=== PATIENT | female | born 1960 | race African-American/Black ===

== ENCOUNTER 2016-12-09 06:12 | Inpatient (IN) | payer MEDICARE, MEDICAID ==
[2016-12-09] VITALS (58 sets, daily range): BP systolic 113–184; BP diastolic 33–157
[~2016-12-09] VITALS: Ht 160 cm; Wt 77.1 kg
[~2016-12-09 06:12] MED LIST: DIGO250T4 GT; LACT10SO6 GT; METO-293 GT; METO25TA6 GT; MULT-1146 GT; PROT40 GT
[2016-12-09] MEDS ORDERED: ACETAMINOPHEN 650MG SUPP PR STA (06:15)
[2016-12-09] MEDS ORDERED: METHYLPREDNISOLONE SOD SUCC 125 MG/2 ML VIAL IV STA (06:40)
[2016-12-09] MEDS ORDERED: ALBUTEROL (0.083%) 2.5MG/3ML NEB HHN STA (06:40)
[2016-12-09] MEDS ORDERED: MAGNESIUM 2 G PREMIX 50 ML IV STA (06:40)
[2016-12-09] MEDS ORDERED: IPRATROPIUM BROMIDE (0.02%) 0.5MG/2.5ML NEB HHN STA (06:40)
[2016-12-09] MEDS ORDERED: LEVOFLOXACIN 500MG PREMIX 100 ML IV ONE (06:45)
[2016-12-09] MEDS ORDERED: IPRATROPIUM/ALBUTEROL 0.5-3(2.5)MG/3ML NEB ONE (06:54)
[2016-12-09] MEDS ORDERED: ALBUTEROL (0.5%) 2.5MG/0.5ML NEB HHN ONE (06:55)
[2016-12-09 06:57] LABS: BASOPHILS % 0.8 % (0.0-2.0); EOSINOPHILS % 1.1 % (0.0-5.0); HEMATOCRIT. 47.4 % (36.0-48.0); HEMOGLOBIN. 14.6 g/dL (12.0-16.0); LYMPHOCYTES % 29.8 % (20.0-50.0); MEAN CORPUSCULAR HEMOGLOBIN 23.7 pg (28.0-32.0); MEAN CORPUSCULAR VOLUME 77.1 fL (81.0-99.0); MONOCYTES % 6.1 % (2.0-8.0); NEUTROPHILS % 62.2 % (40.0-76.0); RED BLOOD CELL COUNT 6.15 mill/uL (4.2-5.4); RED CELL DISTRIBUTION WIDTH 14.8 % (11.6-14.6)
[2016-12-09 07:02] LABS: PARTIAL THROMBOPLASTIN TIME 25.9 sec (24.0-34.0); PROTHROMBIN TIME 10.5 sec
[2016-12-09 07:10] LABS: CARBON DIOXIDE 27 mEq/L (21-32); CHLORIDE 106 mEq/L (98-107)
[2016-12-09 07:12] LABS: AMMONIA 44 uMol/L (<32); TROPONIN I < 0.02 ng/mL (0.00-0.04)
[2016-12-09 07:23] LABS: MEAN PLATELET VOLUME 11.5 fl (7.4-10.4); PLATELET 113 x1000/uL (130-400)
[2016-12-09] MEDS ORDERED: SODIUM CHLORIDE 0.9% 1,000 ML IV ONE (07:23)
[2016-12-09 07:28] LABS: DIGOXIN 0.5 ng/mL (0.9-2.0)
[2016-12-09] MEDS ORDERED: SUCCINYLCHOLINE CHLORIDE 200MG/10ML VIAL IV ONE ×2 (07:30→10:54)
[2016-12-09] MEDS ORDERED: PROPOFOL 10MG/ML 100ML 100 ML IV ONE (07:30)
[2016-12-09 07:42] LABS: CLARITY URINE CLOUDY (CLEAR); COLOR URINE YELLOW (YELLOW); GLUCOSE URINE NEGATIVE (NEGATIVE); KETONES URINE TRACE (NEGATIVE); LEUKOCYTE ESTERASE URINE 2+ (NEGATIVE); NITRITE URINE POSITIVE (NEGATIVE); OCCULT BLOOD URINE NEGATIVE (NEGATIVE); PH URINE 6.5 (4.5-8.0); PROTEIN URINE 1+ (NEGATIVE); SPECIFIC GRAVITY URINE 1.027 (1.005-1.030)
[2016-12-09] MEDS ORDERED: SODIUM CHLORIDE 0.9% 1000ML BAG (SEPSIS BOLUS) IV ONE (08:00)
[2016-12-09] MEDS ORDERED: ETOMIDATE 2MG/ML 10ML VIAL IV ONE ×2 (08:15→10:54)
[2016-12-09 09:04] LABS: BG BASE EXCESS -3.7 mmol/L (-2.0-2.0); BG CARBOXYHEMOGLOBIN 0.8 % (0.5-1.5); BG DEOXYHEMOGLOBIN 1.3 % (0.0-5.0); BG FRACTION INSPIRED OXYGEN 75; BG HCO3 ACT 23.4 mmol/L (22.0-26.0); BG METHEMOGLOBIN 0.5 % (0.0-1.5); BG OXYGEN SATURATION 98.7 % (92.0-98.5); BG OXYHEMOGLOBIN 97.4 % (94.0-97.0); BG PCO2 49.8 mmHg (35.0-45.0); BG PH 7.289 (7.350-7.450); BG PO2 135.7 mmHg (75.0-100.0); BG SAMPLE SITE RIGHT RADIAL; BG TIDAL VOLUME(mL) 450 mL; BG TOTAL HEMOGLOBIN 15.1 g/dL (12.0-18.0); BG VENT MODE VENT - A/C; BG VENT RATE 12 set
[2016-12-09] MEDS ORDERED: IPRATROPIUM/ALBUTEROL 0.5-3(2.5)MG/3ML NEB HHN PRN (09:30)
[2016-12-09] MEDS ORDERED: NOREPINEPHRINE 8 MG in DEXT 5% WATER 242 ML IV PRN (09:30)
[2016-12-09] MEDS ORDERED: PROPOFOL 10MG/ML 100ML 100 ML IV PRN (10:30)
[2016-12-09 10:51] LABS: BG BASE EXCESS -8.2 mmol/L (-2.0-2.0); BG DEOXYHEMOGLOBIN 2.3 % (0.0-5.0); BG FRACTION INSPIRED OXYGEN 75; BG HCO3 ACT 18.6 mmol/L (22.0-26.0); BG METHEMOGLOBIN 0.6 % (0.0-1.5); BG OXYGEN SATURATION 97.7 % (92.0-98.5); BG OXYHEMOGLOBIN 96.1 % (94.0-97.0); BG PH 7.254 (7.350-7.450); BG PO2 105.2 mmHg (75.0-100.0); BG SAMPLE SITE LEFT RADIAL; BG TIDAL VOLUME(mL) 450 mL; BG TOTAL HEMOGLOBIN 14.5 g/dL (12.0-18.0); BG VENT MODE VENT - A/C; BG VENT RATE 12 set
[2016-12-09] MEDS ORDERED: LEVVL SQ ×2 (10:53)
[2016-12-09] MEDS ORDERED: [UNRECOGNIZED DRUG - CODE] GT (10:55)
[2016-12-09] MEDS ORDERED: DIGO125T82 PO (10:56)
[2016-12-09] MEDS ORDERED: FAMO-134 GT (10:57)
[2016-12-09] MEDS ORDERED: CHOL20004 GT (10:58)
[2016-12-09] MEDS ORDERED: ONDANSETRON HCL 4MG/2ML VIAL IV PRN (11:15)
[2016-12-09] MEDS ORDERED: CLONIDINE 0.1MG TABLET PO PRN (11:15)
[2016-12-09] MEDS ORDERED: NA PHOS,M-B/NA PHOS,DI-BA ENEMA 118ML PR PRN (11:15)
[2016-12-09] MEDS ORDERED: DOCUSATE SODIUM 100MG CAPSULE PO PRN (11:15)
[2016-12-09] MEDS ORDERED: MAGNESIUM/ALUMINUM HYDROXIDE/SIMETHICONE 30ML UDC PO PRN (11:15)
[2016-12-09] MEDS ORDERED: DIPHENHYDRAMINE 50MG/ML VIAL IV PRN (11:15)
[2016-12-09] MEDS: DEXT 5%/0.9% NACL 1,000 ML IV SCH ×2 (12:00→20:53)
[2016-12-09] MEDS ORDERED: VANCOMYCIN 1500MG in DEXTROSE 5% WATER 250ML IV SCH (12:00)
[2016-12-09] MEDS: MEROPENEM 1,000 MG in SODIUM CHLORIDE 0.9% 100 ML IV SCH ×2 (12:00→20:51)
[2016-12-09] MEDS: ENOXAPARIN 30MG/0.3ML SYR SUBCUT SCH ×2 (12:01→20:53)
[2016-12-09] MEDS ORDERED: DEXTROSE 50% WATER 50ML SYRINGE IV PRN (12:30)
[2016-12-09] MEDS: IPRATROPIUM/ALBUTEROL 0.5-3(2.5)MG/3ML NEB HHN SCH ×2 (12:39→20:17)
[2016-12-09] MEDS: METOPROLOL TARTRATE 25MG TABLET GT SCH ×2 (12:52→20:52)
[2016-12-09] MEDS: INSULIN LISPRO 100 UNITS/ML SUBCUT SCH ×2 (12:52→18:08)
[2016-12-09] MEDS: BLOOD SUGAR DIAGNOSTIC STRIP TEST SCH ×3 (12:53→23:58)
[2016-12-09] MEDS ORDERED: MORPHINE SULFATE 2 MG/ML CPJ (NOT FOR IM USE) IV PRN ×2 (14:15)
[2016-12-09] MEDS: DIGOXIN 125MCG TABLET GT SCH (18:07)
[2016-12-09] MEDS ORDERED: FENTANYL CITRATE/PF 500 MCG in SODIUM CHLORIDE 0.9% 40 ML IV PRN (18:30)
[2016-12-09] MEDS: FAMOTIDINE 20MG TABLET PO SCH (20:51)
[2016-12-09] MEDS: BACITRACIN/POLYMYXIN B SULFATE OINT 15GM TOP SCH (20:53)
[2016-12-09] MEDS: INSULIN DETEMIR UD 100 UNITS/ML SYR SUBCUT SCH (21:06)
[2016-12-09] MEDS ORDERED: MORPHINE SULFATE 4 MG/ML CPJ (NOT FOR IM USE) IV PRN ×2 (22:21→22:30)
[2016-12-09] MEDS: VANCOMYCIN 1 G PREMIX 200 ML IV SCH (22:24)
[2016-12-09] MEDS: MORPHINE SULFATE 4 MG/ML CPJ (NOT FOR IM USE) IV PRN (22:30)
[2016-12-10] VITALS (63 sets, daily range): BP systolic 96–149; BP diastolic 52–80
[2016-12-10] MEDS: INSULIN LISPRO 100 UNITS/ML SUBCUT SCH ×5 (00:04→23:55)
[2016-12-10] MEDS: IPRATROPIUM/ALBUTEROL 0.5-3(2.5)MG/3ML NEB HHN SCH ×4 (02:07→20:21)
[2016-12-10] MEDS: MEROPENEM 1,000 MG in SODIUM CHLORIDE 0.9% 100 ML IV SCH ×3 (02:15→18:05)
[2016-12-10] MEDS: BLOOD SUGAR DIAGNOSTIC STRIP TEST SCH ×3 (05:20→17:13)
[2016-12-10 05:50] LABS: BASOPHILS % 0.4 % (0.0-2.0); HEMOGLOBIN. 12.1 g/dL (12.0-16.0); LYMPHOCYTES % 10.6 % (20.0-50.0); MEAN CORPUSCULAR HEMOGLOBIN 23.6 pg (28.0-32.0); MEAN CORPUSCULAR VOLUME 78.1 fL (81.0-99.0); MEAN PLATELET VOLUME 11.7 fl (7.4-10.4); PLATELET 98 x1000/uL (130-400); RED BLOOD CELL COUNT 5.12 mill/uL (4.2-5.4); RED CELL DISTRIBUTION WIDTH 15.1 % (11.6-14.6)
[2016-12-10] MEDS: DEXT 5%/0.9% NACL 1,000 ML IV SCH (06:03)
[2016-12-10 06:04] LABS: CARBON DIOXIDE 26 mEq/L (21-32); CHLORIDE 112 mEq/L (98-107)
[2016-12-10 07:28] LABS: BG BASE EXCESS 1.3 mmol/L (-2.0-2.0); BG CARBOXYHEMOGLOBIN 0.5 % (0.5-1.5); BG DEOXYHEMOGLOBIN 4.1 % (0.0-5.0); BG HCO3 ACT 27.2 mmol/L (22.0-26.0); BG METHEMOGLOBIN 0.1 % (0.0-1.5); BG OXYGEN SATURATION 95.9 % (92.0-98.5); BG OXYHEMOGLOBIN 95.3 % (94.0-97.0); BG PCO2 48.2 mmHg (35.0-45.0); BG PO2 79.4 mmHg (75.0-100.0); BG SAMPLE SITE RIGHT BRACHIAL; BG TIDAL VOLUME(mL) 500 mL; BG TOTAL HEMOGLOBIN 13.2 g/dL (12.0-18.0); BG VENT MODE VENT - A/C; BG VENT RATE 12 set
[2016-12-10] MEDS: ENOXAPARIN 30MG/0.3ML SYR SUBCUT SCH (08:11)
[2016-12-10] MEDS: METOPROLOL TARTRATE 25MG TABLET GT SCH ×2 (08:11→20:51)
[2016-12-10] MEDS: MORPHINE SULFATE 4 MG/ML CPJ (NOT FOR IM USE) IV PRN (08:12)
[2016-12-10] MEDS: BACITRACIN/POLYMYXIN B SULFATE OINT 15GM TOP SCH ×2 (08:12→20:52)
[2016-12-10] MEDS: DEXT 5%/0.45% NACL 1000ML 1,000 ML IV SCH ×2 (10:31→20:51)
[2016-12-10] MEDS: VANCOMYCIN 1 G PREMIX 200 ML IV SCH ×2 (10:33→23:55)
[2016-12-10] MEDS: DIGOXIN 125MCG TABLET GT SCH (17:13)
[2016-12-10] MEDS: FAMOTIDINE 20MG TABLET PO SCH (20:51)
[2016-12-10] MEDS: INSULIN DETEMIR UD 100 UNITS/ML SYR SUBCUT SCH (21:06)
[2016-12-10] MEDS: LORAZEPAM 2MG/ML CPJ IV PRN (23:55)
[2016-12-11] VITALS (24 sets, daily range): BP systolic 103–158; BP diastolic 58–88
[2016-12-11] MEDS: BLOOD SUGAR DIAGNOSTIC STRIP TEST SCH ×4 (00:03→18:00)
[2016-12-11] MEDS: MEROPENEM 1,000 MG in SODIUM CHLORIDE 0.9% 100 ML IV SCH ×3 (01:17→18:07)
[2016-12-11] MEDS: IPRATROPIUM/ALBUTEROL 0.5-3(2.5)MG/3ML NEB HHN SCH ×5 (01:58→20:19)
[2016-12-11 05:24] LABS: BASOPHILS % 0.7 % (0.0-2.0); HEMOGLOBIN. 11.6 g/dL (12.0-16.0); LYMPHOCYTES % 24.2 % (20.0-50.0); MEAN CORPUSCULAR HEMOGLOBIN 23.7 pg (28.0-32.0); MEAN CORPUSCULAR VOLUME 77.5 fL (81.0-99.0); MONOCYTES % 7.7 % (2.0-8.0); NEUTROPHILS % 66.4 % (40.0-76.0); RED BLOOD CELL COUNT 4.91 mill/uL (4.2-5.4); RED CELL DISTRIBUTION WIDTH 14.7 % (11.6-14.6)
[2016-12-11 05:36] LABS: CARBON DIOXIDE 27 mEq/L (21-32); CHLORIDE 108 mEq/L (98-107)
[2016-12-11] MEDS: INSULIN LISPRO 100 UNITS/ML SUBCUT SCH ×3 (06:36→18:29)
[2016-12-11 08:25] LABS: BG CARBOXYHEMOGLOBIN 0.8 % (0.5-1.5); BG DEOXYHEMOGLOBIN 2.7 % (0.0-5.0); BG FRACTION INSPIRED OXYGEN 40; BG HCO3 ACT 26.5 mmol/L (22.0-26.0); BG METHEMOGLOBIN 0.3 % (0.0-1.5); BG OXYGEN SATURATION 97.3 % (92.0-98.5); BG OXYHEMOGLOBIN 96.2 % (94.0-97.0); BG PCO2 41.1 mmHg (35.0-45.0); BG PH 7.428 (7.350-7.450); BG PO2 86.8 mmHg (75.0-100.0); BG SAMPLE SITE RIGHT RADIAL; BG TIDAL VOLUME(mL) 500 mL; BG TOTAL HEMOGLOBIN 13.4 g/dL (12.0-18.0); BG VENT MODE VENT - A/C; BG VENT RATE 12 set
[2016-12-11] MEDS ORDERED: PANTOPRAZOLE SODIUM 40 MG/VIAL IV SCH (09:45)
[2016-12-11] MEDS ORDERED: POTASSIUM CHLORIDE 20MEQ/PACKET PO NR (09:45)
[2016-12-11] MEDS: METOPROLOL TARTRATE 25MG TABLET GT SCH ×2 (09:49→21:27)
[2016-12-11] MEDS: BACITRACIN/POLYMYXIN B SULFATE OINT 15GM TOP SCH ×2 (09:49→21:28)
[2016-12-11] MEDS ORDERED: FAMOTIDINE 20MG/2ML VIAL IV SCH (10:00)
[2016-12-11] MEDS ORDERED: OMEPRAZOLE 20MG CAPSULE EXTENDED RELEASE PO SCH (10:15)
[2016-12-11 10:39] LABS: PHOSPHORUS 1.5 mg/dL (2.5-4.9)
[2016-12-11] MEDS: LANSOPRAZOLE 30MG DR CAPSULE GT SCH (11:12)
[2016-12-11] MEDS: VANCOMYCIN 1 G PREMIX 200 ML IV SCH (11:22)
[2016-12-11] MEDS: LORAZEPAM 2MG/ML CPJ IV PRN (11:26)
[2016-12-11] MEDS: ACETYLCYSTEINE 100MG/ML 10% VIAL 4ML INH SCH ×3 (12:49→20:20)
[2016-12-11] MEDS: DIGOXIN 125MCG TABLET GT SCH (18:08)
[2016-12-11] MEDS: INSULIN DETEMIR UD 100 UNITS/ML SYR SUBCUT SCH (21:30)
[2016-12-11] MEDS: VANCOMYCIN 1250MG in DEXTROSE 5% WATER 250ML IV SCH (22:47)
[2016-12-12] VITALS (24 sets, daily range): BP systolic 95–168; BP diastolic 54–93
[2016-12-12] MEDS: BLOOD SUGAR DIAGNOSTIC STRIP TEST SCH ×4 (00:01→18:00)
[2016-12-12] MEDS: INSULIN LISPRO 100 UNITS/ML SUBCUT SCH ×4 (00:13→18:11)
[2016-12-12] MEDS: IPRATROPIUM/ALBUTEROL 0.5-3(2.5)MG/3ML NEB HHN SCH ×6 (00:13→20:28)
[2016-12-12] MEDS: ACETYLCYSTEINE 100MG/ML 10% VIAL 4ML INH SCH ×5 (00:14→20:27)
[2016-12-12] MEDS: MEROPENEM 1,000 MG in SODIUM CHLORIDE 0.9% 100 ML IV SCH ×3 (02:36→17:09)
[2016-12-12] MEDS: MORPHINE SULFATE 4 MG/ML CPJ (NOT FOR IM USE) IV PRN (02:43)
[2016-12-12] MEDS: LORAZEPAM 2MG/ML CPJ IV PRN (03:43)
[2016-12-12] MEDS: ACETAMINOPHEN 325MG TABLET PO PRN (03:56)
[2016-12-12 05:21] LABS: BASOPHILS % 0.3 % (0.0-2.0); EOSINOPHILS % 0.5 % (0.0-5.0); HEMATOCRIT. 40.6 % (36.0-48.0); HEMOGLOBIN. 12.6 g/dL (12.0-16.0); LYMPHOCYTES % 16.2 % (20.0-50.0); MEAN CORPUSCULAR HEMOGLOBIN 23.7 pg (28.0-32.0); MEAN CORPUSCULAR VOLUME 76.3 fL (81.0-99.0); MONOCYTES % 6.8 % (2.0-8.0); NEUTROPHILS % 76.2 % (40.0-76.0); RED BLOOD CELL COUNT 5.32 mill/uL (4.2-5.4); RED CELL DISTRIBUTION WIDTH 14.6 % (11.6-14.6)
[2016-12-12 05:39] LABS: CARBON DIOXIDE 27 mEq/L (21-32); CHLORIDE 106 mEq/L (98-107); PHOSPHORUS 1.7 mg/dL (2.5-4.9)
[2016-12-12 07:47] LABS: MEAN PLATELET VOLUME 11.6 fl (7.4-10.4); PLATELET 112 x1000/uL (130-400)
[2016-12-12] MEDS: LANSOPRAZOLE 30MG DR CAPSULE GT SCH (07:49)
[2016-12-12] MEDS: BACITRACIN/POLYMYXIN B SULFATE OINT 15GM TOP SCH ×2 (09:52→20:59)
[2016-12-12] MEDS: METOPROLOL TARTRATE 25MG TABLET GT SCH ×2 (09:53→20:59)
[2016-12-12] MEDS: VANCOMYCIN 1250MG in DEXTROSE 5% WATER 250ML IV SCH ×2 (11:56→22:28)
[2016-12-12] MEDS ORDERED: LANSOPRAZOLE 30MG DR CAPSULE GT SCH (12:00)
[2016-12-12] MEDS ORDERED: POTASSIUM PHOS,M-BASIC-D-BASIC 15 MMOL in DEXT 5% WATER 245 ML IV NR (13:30)
[2016-12-12] MEDS: DIGOXIN 125MCG TABLET GT SCH (17:09)
[2016-12-12] MEDS: INSULIN DETEMIR UD 100 UNITS/ML SYR SUBCUT SCH (22:29)
[2016-12-13] VITALS (24 sets, daily range): BP systolic 104–152; BP diastolic 52–84
[2016-12-13] MEDS: IPRATROPIUM/ALBUTEROL 0.5-3(2.5)MG/3ML NEB HHN SCH ×7 (00:12→23:55)
[2016-12-13] MEDS: ACETYLCYSTEINE 100MG/ML 10% VIAL 4ML INH SCH ×7 (00:12→23:56)
[2016-12-13] MEDS: BLOOD SUGAR DIAGNOSTIC STRIP TEST SCH ×5 (00:18→23:32)
[2016-12-13] MEDS: INSULIN LISPRO 100 UNITS/ML SUBCUT SCH ×5 (00:21→23:39)
[2016-12-13] MEDS: MEROPENEM 1,000 MG in SODIUM CHLORIDE 0.9% 100 ML IV SCH ×3 (02:11→18:12)
[2016-12-13 05:49] LABS: BASOPHILS % 0.6 % (0.0-2.0); EOSINOPHILS % 1.9 % (0.0-5.0); HEMATOCRIT. 41.9 % (36.0-48.0); HEMOGLOBIN. 13.1 g/dL (12.0-16.0); LYMPHOCYTES % 21.7 % (20.0-50.0); MEAN CORPUSCULAR HEMOGLOBIN 23.6 pg (28.0-32.0); MEAN CORPUSCULAR VOLUME 75.7 fL (81.0-99.0); MEAN PLATELET VOLUME 11.4 fl (7.4-10.4); MONOCYTES % 5.8 % (2.0-8.0); PLATELET 125 x1000/uL (130-400); RED BLOOD CELL COUNT 5.54 mill/uL (4.2-5.4)
[2016-12-13 06:21] LABS: CARBON DIOXIDE 28 mEq/L (21-32); CHLORIDE 106 mEq/L (98-107)
[2016-12-13] MEDS: LANSOPRAZOLE 30MG DR CAPSULE GT SCH (07:55)
[2016-12-13 08:51] LABS: PLATELET ESTIMATE SLIGHTLY DECREASED
[2016-12-13] MEDS: METOPROLOL TARTRATE 25MG TABLET GT SCH ×2 (09:07→20:18)
[2016-12-13] MEDS: BACITRACIN/POLYMYXIN B SULFATE OINT 15GM TOP SCH ×2 (09:08→20:17)
[2016-12-13] MEDS: MORPHINE SULFATE 4 MG/ML CPJ (NOT FOR IM USE) IV PRN (10:47)
[2016-12-13] MEDS: VANCOMYCIN 1500MG in DEXTROSE 5% WATER 250ML IV SCH ×2 (12:12→21:06)
[2016-12-13] MEDS: DIGOXIN 125MCG TABLET GT SCH (18:12)
[2016-12-13] MEDS: ENOXAPARIN 40MG/0.4ML SYR SUBCUT SCH (18:15)
[2016-12-13] MEDS: INSULIN DETEMIR UD 100 UNITS/ML SYR SUBCUT SCH (21:10)
[2016-12-14] VITALS (25 sets, daily range): BP systolic 98–150; BP diastolic 56–118
[2016-12-14] MEDS: MEROPENEM 1,000 MG in SODIUM CHLORIDE 0.9% 100 ML IV SCH ×3 (01:01→18:26)
[2016-12-14] MEDS: IPRATROPIUM/ALBUTEROL 0.5-3(2.5)MG/3ML NEB HHN SCH ×5 (04:01→20:00)
[2016-12-14] MEDS: ACETYLCYSTEINE 100MG/ML 10% VIAL 4ML INH SCH ×5 (04:02→20:00)
[2016-12-14] MEDS: BLOOD SUGAR DIAGNOSTIC STRIP TEST SCH ×3 (05:10→18:19)
[2016-12-14] MEDS: INSULIN LISPRO 100 UNITS/ML SUBCUT SCH ×3 (05:10→18:00)
[2016-12-14] MEDS: METOPROLOL TARTRATE 25MG TABLET GT SCH ×2 (08:02→21:43)
[2016-12-14] MEDS: LANSOPRAZOLE 30MG DR CAPSULE GT SCH (08:02)
[2016-12-14] MEDS: BACITRACIN/POLYMYXIN B SULFATE OINT 15GM TOP SCH ×2 (08:03→21:43)
[2016-12-14 08:16] LABS: BG BASE EXCESS 1.5 mmol/L (-2.0-2.0); BG CARBOXYHEMOGLOBIN 0.8 % (0.5-1.5); BG DEOXYHEMOGLOBIN 4.7 % (0.0-5.0); BG FRACTION INSPIRED OXYGEN 40; BG HCO3 ACT 27.2 mmol/L (22.0-26.0); BG METHEMOGLOBIN 0.3 % (0.0-1.5); BG OXYGEN SATURATION 95.2 % (92.0-98.5); BG OXYHEMOGLOBIN 94.2 % (94.0-97.0); BG PCO2 47.3 mmHg (35.0-45.0); BG PH 7.378 (7.350-7.450); BG PO2 75.5 mmHg (75.0-100.0); BG SAMPLE SITE RIGHT RADIAL; BG TIDAL VOLUME(mL) 500 mL; BG VENT MODE VENT - A/C; BG VENT RATE 12 set
[2016-12-14] MEDS: VANCOMYCIN 1500MG in DEXTROSE 5% WATER 250ML IV SCH ×2 (09:24→21:42)
[2016-12-14 11:45] LABS: BASOPHILS % 0.7 % (0.0-2.0); EOSINOPHILS % 3.2 % (0.0-5.0); HEMATOCRIT. 41.9 % (36.0-48.0); HEMOGLOBIN. 12.9 g/dL (12.0-16.0); LYMPHOCYTES % 20.2 % (20.0-50.0); MEAN CORPUSCULAR HEMOGLOBIN 23.7 pg (28.0-32.0); MEAN CORPUSCULAR VOLUME 76.8 fL (81.0-99.0); MEAN PLATELET VOLUME 11.1 fl (7.4-10.4); MONOCYTES % 5.9 % (2.0-8.0); PLATELET 125 x1000/uL (130-400); RED BLOOD CELL COUNT 5.45 mill/uL (4.2-5.4)
[2016-12-14 11:54] LABS: CARBON DIOXIDE 27 mEq/L (21-32); CHLORIDE 107 mEq/L (98-107)
[2016-12-14 11:57] LABS: PHOSPHORUS 2.6 mg/dL (2.5-4.9)
[2016-12-14] MEDS: ENOXAPARIN 40MG/0.4ML SYR SUBCUT SCH (15:44)
[2016-12-14] MEDS: DIGOXIN 125MCG TABLET GT SCH (18:26)
[2016-12-14] MEDS: INSULIN DETEMIR UD 100 UNITS/ML SYR SUBCUT SCH (22:00)
[2016-12-15] VITALS (24 sets, daily range): BP systolic 100–153; BP diastolic 59–85
[2016-12-15] MEDS: ACETYLCYSTEINE 100MG/ML 10% VIAL 4ML INH SCH ×6 (00:24→20:13)
[2016-12-15] MEDS: IPRATROPIUM/ALBUTEROL 0.5-3(2.5)MG/3ML NEB HHN SCH ×6 (00:24→20:13)
[2016-12-15] MEDS: BLOOD SUGAR DIAGNOSTIC STRIP TEST SCH ×5 (00:31→23:58)
[2016-12-15] MEDS: INSULIN LISPRO 100 UNITS/ML SUBCUT SCH ×4 (00:35→17:56)
[2016-12-15] MEDS: MEROPENEM 1,000 MG in SODIUM CHLORIDE 0.9% 100 ML IV SCH ×3 (01:34→17:55)
[2016-12-15] MEDS: LANSOPRAZOLE 30MG DR CAPSULE GT SCH (08:53)
[2016-12-15] MEDS: VANCOMYCIN 1500MG in DEXTROSE 5% WATER 250ML IV SCH (08:54)
[2016-12-15] MEDS: METOPROLOL TARTRATE 25MG TABLET GT SCH ×2 (08:54→20:49)
[2016-12-15] MEDS: BACITRACIN/POLYMYXIN B SULFATE OINT 15GM TOP SCH ×2 (08:54→20:50)
[2016-12-15 11:51] LABS: BG BASE EXCESS 2.9 mmol/L (-2.0-2.0); BG CARBOXYHEMOGLOBIN 0.5 % (0.5-1.5); BG CPAP (cmH2O) 0 cm(H2O); BG DEOXYHEMOGLOBIN 3.9 % (0.0-5.0); BG HCO3 ACT 27.9 mmol/L (22.0-26.0); BG METHEMOGLOBIN 0.3 % (0.0-1.5); BG OXYGEN SATURATION 96.1 % (92.0-98.5); BG OXYHEMOGLOBIN 95.3 % (94.0-97.0); BG PCO2 44.3 mmHg (35.0-45.0); BG PH 7.417 (7.350-7.450); BG PO2 79.3 mmHg (75.0-100.0); BG PRESSURE SUPPORT 12; BG SAMPLE SITE RIGHT RADIAL; BG TOTAL HEMOGLOBIN 13.7 g/dL (12.0-18.0); BG VENT MODE VENT - CPAP
[2016-12-15] MEDS: VANCOMYCIN HCL 1000 MG/20 ML ORAL PO SCH ×3 (12:19→23:59)
[2016-12-15 12:40] LABS: BASOPHILS % 0.7 % (0.0-2.0); EOSINOPHILS % 2.5 % (0.0-5.0); HEMOGLOBIN. 12.8 g/dL (12.0-16.0); MEAN CORPUSCULAR HEMOGLOBIN 23.9 pg (28.0-32.0); MEAN CORPUSCULAR VOLUME 76.6 fL (81.0-99.0); MEAN PLATELET VOLUME 11.4 fl (7.4-10.4); NEUTROPHILS % 66.8 % (40.0-76.0); PLATELET 149 x1000/uL (130-400); RED BLOOD CELL COUNT 5.35 mill/uL (4.2-5.4); RED CELL DISTRIBUTION WIDTH 14.4 % (11.6-14.6)
[2016-12-15 12:42] LABS: CARBON DIOXIDE 28 mEq/L (21-32); CHLORIDE 105 mEq/L (98-107); PHOSPHORUS 2.8 mg/dL (2.5-4.9)
[2016-12-15] MEDS: ENOXAPARIN 40MG/0.4ML SYR SUBCUT SCH (15:16)
[2016-12-15] MEDS: VANCOMYCIN 1 G PREMIX 200 ML IV SCH ×2 (16:51→23:59)
[2016-12-15] MEDS: DIGOXIN 125MCG TABLET GT SCH (17:55)
[2016-12-15] MEDS: INSULIN DETEMIR UD 100 UNITS/ML SYR SUBCUT SCH (21:07)
[2016-12-15 23:47] LABS: PLATELET ESTIMATE NORMAL
[2016-12-16] VITALS (24 sets, daily range): BP systolic 108–156; BP diastolic 62–87
[2016-12-16] MEDS: IPRATROPIUM/ALBUTEROL 0.5-3(2.5)MG/3ML NEB HHN SCH ×6 (00:13→20:10)
[2016-12-16] MEDS: ACETYLCYSTEINE 100MG/ML 10% VIAL 4ML INH SCH ×4 (00:13→12:01)
[2016-12-16] MEDS: MEROPENEM 1,000 MG in SODIUM CHLORIDE 0.9% 100 ML IV SCH ×2 (02:01→10:15)
[2016-12-16] MEDS: VANCOMYCIN HCL 1000 MG/20 ML ORAL PO SCH ×4 (05:43→23:54)
[2016-12-16] MEDS: BLOOD SUGAR DIAGNOSTIC STRIP TEST SCH ×4 (05:43→23:49)
[2016-12-16] MEDS: INSULIN LISPRO 100 UNITS/ML SUBCUT SCH ×5 (06:00→23:58)
[2016-12-16] MEDS: METOPROLOL TARTRATE 25MG TABLET GT SCH ×2 (08:17→21:06)
[2016-12-16] MEDS: BACITRACIN/POLYMYXIN B SULFATE OINT 15GM TOP SCH ×2 (08:18→21:08)
[2016-12-16] MEDS: VANCOMYCIN 1 G PREMIX 200 ML IV SCH (08:19)
[2016-12-16] MEDS: LANSOPRAZOLE 30MG DR CAPSULE GT SCH (08:20)
[2016-12-16 08:48] LABS: BASOPHILS % 0.4 % (0.0-2.0); EOSINOPHILS % 2.2 % (0.0-5.0); HEMATOCRIT. 38.9 % (36.0-48.0); HEMOGLOBIN. 11.9 g/dL (12.0-16.0); LYMPHOCYTES % 17.8 % (20.0-50.0); MEAN CORPUSCULAR HEMOGLOBIN 23.7 pg (28.0-32.0); MEAN CORPUSCULAR VOLUME 77.3 fL (81.0-99.0); MONOCYTES % 7.4 % (2.0-8.0); NEUTROPHILS % 72.2 % (40.0-76.0); RED BLOOD CELL COUNT 5.03 mill/uL (4.2-5.4); RED CELL DISTRIBUTION WIDTH 14.8 % (11.6-14.6)
[2016-12-16 08:59] LABS: CARBON DIOXIDE 29 mEq/L (21-32); CHLORIDE 106 mEq/L (98-107); PHOSPHORUS 2.5 mg/dL (2.5-4.9)
[2016-12-16 11:32] LABS: MEAN PLATELET VOLUME 10.6 fl (7.4-10.4)
[2016-12-16 11:33] LABS: PLATELET 157 x1000/uL (130-400)
[2016-12-16] MEDS: ENOXAPARIN 40MG/0.4ML SYR SUBCUT SCH (17:00)
[2016-12-16] MEDS: DIGOXIN 125MCG TABLET GT SCH (17:59)
[2016-12-16] MEDS: INSULIN DETEMIR UD 100 UNITS/ML SYR SUBCUT SCH (21:08)
[2016-12-17] VITALS (24 sets, daily range): BP systolic 94–144; BP diastolic 37–86
[2016-12-17] MEDS: IPRATROPIUM/ALBUTEROL 0.5-3(2.5)MG/3ML NEB HHN SCH ×6 (00:16→20:39)
[2016-12-17 05:36] LABS: BASOPHILS % 0.7 % (0.0-2.0); EOSINOPHILS % 2.5 % (0.0-5.0); HEMATOCRIT. 38.6 % (36.0-48.0); LYMPHOCYTES % 24.8 % (20.0-50.0); MEAN CORPUSCULAR HEMOGLOBIN 23.8 pg (28.0-32.0); MEAN CORPUSCULAR VOLUME 76.7 fL (81.0-99.0); MEAN PLATELET VOLUME 10.7 fl (7.4-10.4); MONOCYTES % 7.2 % (2.0-8.0); NEUTROPHILS % 64.8 % (40.0-76.0); PLATELET 171 x1000/uL (130-400); RED BLOOD CELL COUNT 5.03 mill/uL (4.2-5.4); RED CELL DISTRIBUTION WIDTH 14.5 % (11.6-14.6)
[2016-12-17 05:40] LABS: PARTIAL THROMBOPLASTIN TIME 29.2 sec (23.4-31.0); PROTHROMBIN TIME 10.5 sec (9.4-11.6)
[2016-12-17 05:42] LABS: CARBON DIOXIDE 29 mEq/L (21-32); CHLORIDE 107 mEq/L (98-107)
[2016-12-17] MEDS: INSULIN LISPRO 100 UNITS/ML SUBCUT SCH ×4 (06:00→23:28)
[2016-12-17] MEDS: BLOOD SUGAR DIAGNOSTIC STRIP TEST SCH ×4 (06:04→23:28)
[2016-12-17] MEDS: VANCOMYCIN HCL 1000 MG/20 ML ORAL PO SCH ×4 (06:15→23:28)
[2016-12-17] MEDS: LANSOPRAZOLE 30MG DR CAPSULE GT SCH (07:51)
[2016-12-17] MEDS: BACITRACIN/POLYMYXIN B SULFATE OINT 15GM TOP SCH ×2 (07:52→21:13)
[2016-12-17] MEDS: METOPROLOL TARTRATE 25MG TABLET GT SCH ×2 (07:52→20:37)
[2016-12-17 08:40] LABS: BG BASE EXCESS -1.6 mmol/L (-2.0-2.0); BG CARBOXYHEMOGLOBIN 0.2 % (0.5-1.5); BG DEOXYHEMOGLOBIN 4.2 % (0.0-5.0); BG FRACTION INSPIRED OXYGEN 40; BG HCO3 ACT 21.9 mmol/L (22.0-26.0); BG METHEMOGLOBIN 0.1 % (0.0-1.5); BG OXYGEN SATURATION 95.8 % (92.0-98.5); BG OXYHEMOGLOBIN 95.5 % (94.0-97.0); BG PCO2 33.4 mmHg (35.0-45.0); BG PH 7.435 (7.350-7.450); BG PO2 79.1 mmHg (75.0-100.0); BG SAMPLE SITE RIGHT RADIAL; BG TIDAL VOLUME(mL) 500 mL; BG TOTAL HEMOGLOBIN 12.6 g/dL (12.0-18.0); BG VENT MODE VENT - A/C; BG VENT RATE 12 set
[2016-12-17] MEDS: ENOXAPARIN 40MG/0.4ML SYR SUBCUT SCH (17:28)
[2016-12-17] MEDS: DIGOXIN 125MCG TABLET GT SCH (17:28)
[2016-12-17] MEDS: INSULIN DETEMIR UD 100 UNITS/ML SYR SUBCUT SCH (22:21)
[2016-12-18] VITALS (41 sets, daily range): BP systolic 91–143; BP diastolic 43–77
[2016-12-18] MEDS: IPRATROPIUM/ALBUTEROL 0.5-3(2.5)MG/3ML NEB HHN SCH ×6 (00:28→20:20)
[2016-12-18] MEDS: BLOOD SUGAR DIAGNOSTIC STRIP TEST SCH ×4 (05:16→23:05)
[2016-12-18] MEDS: VANCOMYCIN HCL 1000 MG/20 ML ORAL PO SCH ×4 (05:16→23:05)
[2016-12-18] MEDS: INSULIN LISPRO 100 UNITS/ML SUBCUT SCH ×4 (05:16→23:05)
[2016-12-18] MEDS: METOPROLOL TARTRATE 25MG TABLET GT SCH ×2 (08:48→20:59)
[2016-12-18] MEDS: LANSOPRAZOLE 30MG DR CAPSULE GT SCH (08:48)
[2016-12-18] MEDS: BACITRACIN/POLYMYXIN B SULFATE OINT 15GM TOP SCH ×2 (08:49→21:16)
[2016-12-18] MEDS: ENOXAPARIN 40MG/0.4ML SYR SUBCUT SCH (16:17)
[2016-12-18] MEDS: DIGOXIN 125MCG TABLET GT SCH (17:22)
[2016-12-18] MEDS: INSULIN DETEMIR UD 100 UNITS/ML SYR SUBCUT SCH (23:06)
[2016-12-19] VITALS (47 sets, daily range): BP systolic 88–155; BP diastolic 41–94
[2016-12-19] MEDS: IPRATROPIUM/ALBUTEROL 0.5-3(2.5)MG/3ML NEB HHN SCH ×6 (00:25→19:59)
[2016-12-19 05:23] LABS: BASOPHILS % 0.6 % (0.0-2.0); HEMATOCRIT. 38.5 % (36.0-48.0); HEMOGLOBIN. 11.9 g/dL (12.0-16.0); MEAN CORPUSCULAR HEMOGLOBIN 23.8 pg (28.0-32.0); MONOCYTES % 6.7 % (2.0-8.0); NEUTROPHILS % 65.7 % (40.0-76.0); RED CELL DISTRIBUTION WIDTH 14.3 % (11.6-14.6)
[2016-12-19] MEDS: BLOOD SUGAR DIAGNOSTIC STRIP TEST SCH ×3 (05:48→18:14)
[2016-12-19] MEDS: VANCOMYCIN HCL 1000 MG/20 ML ORAL PO SCH ×3 (05:48→18:49)
[2016-12-19] MEDS: INSULIN LISPRO 100 UNITS/ML SUBCUT SCH ×3 (05:48→18:00)
[2016-12-19 06:58] LABS: CHLORIDE 109 mEq/L (98-107)
[2016-12-19 07:07] LABS: CARBON DIOXIDE 28 mEq/L (21-32)
[2016-12-19] MEDS: LANSOPRAZOLE 30MG DR CAPSULE GT SCH (08:40)
[2016-12-19] MEDS: METOPROLOL TARTRATE 25MG TABLET GT SCH ×2 (09:27→21:00)
[2016-12-19] MEDS: BACITRACIN/POLYMYXIN B SULFATE OINT 15GM TOP SCH ×2 (09:28→21:27)
[2016-12-19 10:49] LABS: MEAN PLATELET VOLUME 10.8 fl (7.4-10.4); PLATELET 171 x1000/uL (130-400); PLATELET ESTIMATE NORMAL
[2016-12-19] MEDS: ENOXAPARIN 40MG/0.4ML SYR SUBCUT SCH (17:06)
[2016-12-19] MEDS: DIGOXIN 125MCG TABLET GT SCH (17:06)
[2016-12-19] MEDS: INSULIN DETEMIR UD 100 UNITS/ML SYR SUBCUT SCH (21:28)
[2016-12-20] VITALS (26 sets, daily range): BP systolic 97–144; BP diastolic 49–80
[2016-12-20] MEDS: IPRATROPIUM/ALBUTEROL 0.5-3(2.5)MG/3ML NEB HHN SCH ×6 (00:02→20:41)
[2016-12-20] MEDS: BLOOD SUGAR DIAGNOSTIC STRIP TEST SCH ×4 (00:14→18:25)
[2016-12-20] MEDS: VANCOMYCIN HCL 1000 MG/20 ML ORAL PO SCH ×4 (00:14→18:45)
[2016-12-20] MEDS: INSULIN LISPRO 100 UNITS/ML SUBCUT SCH ×4 (06:00→18:00)
[2016-12-20] MEDS: METOPROLOL TARTRATE 25MG TABLET GT SCH ×3 (08:46→21:43)
[2016-12-20] MEDS: LANSOPRAZOLE 30MG DR CAPSULE GT SCH (08:46)
[2016-12-20] MEDS: BACITRACIN/POLYMYXIN B SULFATE OINT 15GM TOP SCH ×2 (08:52→21:44)
[2016-12-20] MEDS: ENOXAPARIN 40MG/0.4ML SYR SUBCUT SCH (15:46)
[2016-12-20] MEDS: DIGOXIN 125MCG TABLET GT SCH (18:43)
[2016-12-20] MEDS: INSULIN DETEMIR UD 100 UNITS/ML SYR SUBCUT SCH (21:43)
[2016-12-21] VITALS (22 sets, daily range): BP systolic 102–155; BP diastolic 57–91
[2016-12-21] MEDS: VANCOMYCIN HCL 1000 MG/20 ML ORAL PO SCH ×3 (00:01→18:30)
[2016-12-21] MEDS: IPRATROPIUM/ALBUTEROL 0.5-3(2.5)MG/3ML NEB HHN SCH ×6 (00:35→19:54)
[2016-12-21] MEDS: BLOOD SUGAR DIAGNOSTIC STRIP TEST SCH ×4 (00:51→18:18)
[2016-12-21] MEDS: INSULIN LISPRO 100 UNITS/ML SUBCUT SCH ×4 (05:37→18:00)
[2016-12-21 05:43] LABS: BASOPHILS % 0.4 % (0.0-2.0); EOSINOPHILS % 2.4 % (0.0-5.0); HEMATOCRIT. 39.2 % (36.0-48.0); LYMPHOCYTES % 27.3 % (20.0-50.0); MEAN CORPUSCULAR HEMOGLOBIN 23.7 pg (28.0-32.0); MEAN CORPUSCULAR VOLUME 77.4 fL (81.0-99.0); MEAN PLATELET VOLUME 10.6 fl (7.4-10.4); MONOCYTES % 5.4 % (2.0-8.0); NEUTROPHILS % 64.5 % (40.0-76.0); PLATELET 187 x1000/uL (130-400); RED BLOOD CELL COUNT 5.06 mill/uL (4.2-5.4); RED CELL DISTRIBUTION WIDTH 14.7 % (11.6-14.6)
[2016-12-21 05:46] LABS: PARTIAL THROMBOPLASTIN TIME 27.7 sec (23.4-31.0); PROTHROMBIN TIME 10.7 sec (9.4-11.6)
[2016-12-21 06:11] LABS: CARBON DIOXIDE 30 mEq/L (21-32); CHLORIDE 105 mEq/L (98-107); PHOSPHORUS 3.1 mg/dL (2.5-4.9)
[2016-12-21] MEDS: LANSOPRAZOLE 30MG DR CAPSULE GT SCH ×2 (07:50→13:21)
[2016-12-21] MEDS ORDERED: VECURONIUM BROMIDE 10 MG/VIAL IV ONE (12:07)
[2016-12-21] MEDS ORDERED: SODIUM CHLORIDE 0.9% 10ML VIAL ONE (12:07)
[2016-12-21] MEDS ORDERED: MORPHINE SULFATE 2 MG/ML CPJ (NOT FOR IM USE) IV PRN (13:15)
[2016-12-21] MEDS ORDERED: MORPHINE SULFATE 4 MG/ML CPJ (NOT FOR IM USE) IV PRN (13:17)
[2016-12-21] MEDS: BACITRACIN/POLYMYXIN B SULFATE OINT 15GM TOP SCH ×2 (13:19→20:58)
[2016-12-21] MEDS: LORAZEPAM 2MG/ML CPJ IV PRN ×2 (13:19→20:57)
[2016-12-21] MEDS: METOPROLOL TARTRATE 25MG TABLET GT SCH ×2 (13:22→22:05)
[2016-12-21] MEDS: DIGOXIN 125MCG TABLET GT SCH (18:19)
[2016-12-21] MEDS: INSULIN DETEMIR UD 100 UNITS/ML SYR SUBCUT SCH (20:57)
[2016-12-22] VITALS (19 sets, daily range): BP systolic 98–143; BP diastolic 55–75
[2016-12-22] MEDS: IPRATROPIUM/ALBUTEROL 0.5-3(2.5)MG/3ML NEB HHN SCH ×6 (00:22→20:34)
[2016-12-22] MEDS: BLOOD SUGAR DIAGNOSTIC STRIP TEST SCH ×5 (00:38→23:17)
[2016-12-22] MEDS: VANCOMYCIN HCL 1000 MG/20 ML ORAL PO SCH ×5 (00:39→23:13)
[2016-12-22] MEDS: INSULIN LISPRO 100 UNITS/ML SUBCUT SCH ×5 (05:33→23:17)
[2016-12-22 06:16] LABS: BASOPHILS % 0.6 % (0.0-2.0); EOSINOPHILS % 1.8 % (0.0-5.0); HEMATOCRIT. 39.5 % (36.0-48.0); HEMOGLOBIN. 12.2 g/dL (12.0-16.0); LYMPHOCYTES % 23.8 % (20.0-50.0); MEAN CORPUSCULAR VOLUME 77.6 fL (81.0-99.0); MEAN PLATELET VOLUME 10.7 fl (7.4-10.4); MONOCYTES % 4.7 % (2.0-8.0); NEUTROPHILS % 69.1 % (40.0-76.0); PLATELET 179 x1000/uL (130-400); RED BLOOD CELL COUNT 5.09 mill/uL (4.2-5.4); RED CELL DISTRIBUTION WIDTH 14.4 % (11.6-14.6)
[2016-12-22 06:43] LABS: CARBON DIOXIDE 27 mEq/L (21-32); CHLORIDE 108 mEq/L (98-107)
[2016-12-22 07:58] LABS: BG BASE EXCESS 0.6 mmol/L (-2.0-2.0); BG CARBOXYHEMOGLOBIN 0.6 % (0.5-1.5); BG DEOXYHEMOGLOBIN 4.7 % (0.0-5.0); BG FRACTION INSPIRED OXYGEN 40; BG HCO3 ACT 25.6 mmol/L (22.0-26.0); BG METHEMOGLOBIN 0.3 % (0.0-1.5); BG OXYGEN SATURATION 95.3 % (92.0-98.5); BG OXYHEMOGLOBIN 94.4 % (94.0-97.0); BG PCO2 42.2 mmHg (35.0-45.0); BG PO2 75.1 mmHg (75.0-100.0); BG SAMPLE SITE RIGHT BRACHIAL; BG TIDAL VOLUME(mL) 500 mL; BG TOTAL HEMOGLOBIN 12.8 g/dL (12.0-18.0); BG VENT MODE VENT - A/C; BG VENT RATE 12 set
[2016-12-22] MEDS: LANSOPRAZOLE 30MG DR CAPSULE GT SCH (09:45)
[2016-12-22] MEDS: METOPROLOL TARTRATE 25MG TABLET GT SCH ×2 (09:47→20:36)
[2016-12-22] MEDS: BACITRACIN/POLYMYXIN B SULFATE OINT 15GM TOP SCH ×2 (09:47→20:39)
[2016-12-22] MEDS: DIGOXIN 125MCG TABLET GT SCH (18:34)
[2016-12-22] MEDS: INSULIN DETEMIR UD 100 UNITS/ML SYR SUBCUT SCH (20:35)
[2016-12-22] MEDS: ACETAMINOPHEN 325MG TABLET PO PRN (20:46)
[2016-12-23] VITALS (12 sets, daily range): BP systolic 102–148; BP diastolic 50–79
[2016-12-23] MEDS: IPRATROPIUM/ALBUTEROL 0.5-3(2.5)MG/3ML NEB HHN SCH ×6 (00:44→20:20)
[2016-12-23] MEDS: LORAZEPAM 2MG/ML CPJ IV PRN (01:25)
[2016-12-23] MEDS: VANCOMYCIN HCL 1000 MG/20 ML ORAL PO SCH ×3 (05:31→17:12)
[2016-12-23] MEDS: BLOOD SUGAR DIAGNOSTIC STRIP TEST SCH ×3 (05:41→17:11)
[2016-12-23] MEDS: INSULIN LISPRO 100 UNITS/ML SUBCUT SCH ×3 (05:41→17:21)
[2016-12-23] MEDS: LANSOPRAZOLE 30MG DR CAPSULE GT SCH (08:47)
[2016-12-23] MEDS: METOPROLOL TARTRATE 25MG TABLET GT SCH ×2 (08:49→20:37)
[2016-12-23] MEDS: BACITRACIN/POLYMYXIN B SULFATE OINT 15GM TOP SCH ×2 (08:49→20:39)
[2016-12-23] MEDS: DIGOXIN 125MCG TABLET GT SCH (17:11)
[2016-12-23] MEDS: ACETAMINOPHEN 325MG TABLET PO PRN (20:37)
[2016-12-23] MEDS: INSULIN DETEMIR UD 100 UNITS/ML SYR SUBCUT SCH (21:25)
[2016-12-24] VITALS (12 sets, daily range): BP systolic 98–151; BP diastolic 43–135
[2016-12-24] MEDS: IPRATROPIUM/ALBUTEROL 0.5-3(2.5)MG/3ML NEB HHN SCH ×7 (00:13→23:14)
[2016-12-24] MEDS: VANCOMYCIN HCL 1000 MG/20 ML ORAL PO SCH ×5 (00:55→23:31)
[2016-12-24] MEDS: INSULIN LISPRO 100 UNITS/ML SUBCUT SCH ×5 (00:59→23:37)
[2016-12-24] MEDS: BLOOD SUGAR DIAGNOSTIC STRIP TEST SCH ×5 (05:18→23:31)
[2016-12-24 06:14] LABS: BASOPHILS % 0.4 % (0.0-2.0); EOSINOPHILS % 0.9 % (0.0-5.0); HEMATOCRIT. 40.2 % (36.0-48.0); HEMOGLOBIN. 12.3 g/dL (12.0-16.0); LYMPHOCYTES % 18.5 % (20.0-50.0); MEAN CORPUSCULAR HEMOGLOBIN 23.9 pg (28.0-32.0); MEAN CORPUSCULAR VOLUME 77.9 fL (81.0-99.0); MEAN PLATELET VOLUME 11.2 fl (7.4-10.4); MONOCYTES % 5.3 % (2.0-8.0); NEUTROPHILS % 74.9 % (40.0-76.0); PLATELET 173 x1000/uL (130-400); RED BLOOD CELL COUNT 5.16 mill/uL (4.2-5.4); RED CELL DISTRIBUTION WIDTH 14.4 % (11.6-14.6)
[2016-12-24] MEDS: LANSOPRAZOLE 30MG DR CAPSULE GT SCH (06:42)
[2016-12-24] MEDS: METOPROLOL TARTRATE 25MG TABLET GT SCH ×2 (09:00→21:10)
[2016-12-24] MEDS: BACITRACIN/POLYMYXIN B SULFATE OINT 15GM TOP SCH ×2 (09:02→21:11)
[2016-12-24] MEDS ORDERED: LABETALOL HCL 5MG/ML VIAL 20ML IV ONE (11:28)
[2016-12-24] MEDS: DIGOXIN 125MCG TABLET GT SCH (17:57)
[2016-12-24] MEDS: INSULIN DETEMIR UD 100 UNITS/ML SYR SUBCUT SCH (23:39)
[2016-12-25] VITALS (12 sets, daily range): BP systolic 99–130; BP diastolic 53–75
[2016-12-25] MEDS: LORAZEPAM 2MG/ML CPJ IV PRN (02:43)
[2016-12-25] MEDS: IPRATROPIUM/ALBUTEROL 0.5-3(2.5)MG/3ML NEB HHN SCH ×5 (03:15→20:45)
[2016-12-25 03:44] LABS: CLARITY URINE TURBID (CLEAR); COLOR URINE YELLOW (YELLOW); GLUCOSE URINE NEGATIVE (NEGATIVE); KETONES URINE NEGATIVE (NEGATIVE); LEUKOCYTE ESTERASE URINE 3+ (NEGATIVE); NITRITE URINE POSITIVE (NEGATIVE); OCCULT BLOOD URINE 1+ (NEGATIVE); PH URINE 5.5 (4.5-8.0); PROTEIN URINE 2+ (NEGATIVE); SPECIFIC GRAVITY URINE 1.028 (1.005-1.030); UROBILINOGEN URINE 0.2 E.U./dL (0.2-1.0)
[2016-12-25] MEDS: BLOOD SUGAR DIAGNOSTIC STRIP TEST SCH ×4 (05:15→23:05)
[2016-12-25] MEDS: INSULIN LISPRO 100 UNITS/ML SUBCUT SCH ×4 (05:15→23:05)
[2016-12-25 05:17] LABS: BASOPHILS % 0.4 % (0.0-2.0); EOSINOPHILS % 1.4 % (0.0-5.0); HEMOGLOBIN. 11.9 g/dL (12.0-16.0); LYMPHOCYTES % 23.7 % (20.0-50.0); MEAN CORPUSCULAR HEMOGLOBIN 23.8 pg (28.0-32.0); MEAN CORPUSCULAR VOLUME 77.9 fL (81.0-99.0); MEAN PLATELET VOLUME 10.7 fl (7.4-10.4); MONOCYTES % 5.2 % (2.0-8.0); NEUTROPHILS % 69.3 % (40.0-76.0); PLATELET 171 x1000/uL (130-400); RED CELL DISTRIBUTION WIDTH 14.4 % (11.6-14.6)
[2016-12-25] MEDS: VANCOMYCIN HCL 1000 MG/20 ML ORAL PO SCH ×4 (05:17→23:05)
[2016-12-25 06:19] LABS: CHLORIDE 109 mEq/L (98-107)
[2016-12-25 06:30] LABS: CARBON DIOXIDE 28 mEq/L (21-32); CREATINE KINASE 149 IU/L (26-192)
[2016-12-25] MEDS: LANSOPRAZOLE 30MG DR CAPSULE GT SCH (06:34)
[2016-12-25] MEDS: METOPROLOL TARTRATE 25MG TABLET GT SCH ×2 (08:28→21:00)
[2016-12-25] MEDS: BACITRACIN/POLYMYXIN B SULFATE OINT 15GM TOP SCH ×2 (08:29→21:30)
[2016-12-25] MEDS: DIGOXIN 125MCG TABLET GT SCH (17:55)
[2016-12-25] MEDS: INSULIN DETEMIR UD 100 UNITS/ML SYR SUBCUT SCH (23:05)
[2016-12-26] VITALS (12 sets, daily range): BP systolic 109–141; BP diastolic 53–75
[2016-12-26] MEDS: IPRATROPIUM/ALBUTEROL 0.5-3(2.5)MG/3ML NEB HHN SCH ×6 (00:09→20:22)
[2016-12-26] MEDS: INSULIN LISPRO 100 UNITS/ML SUBCUT SCH ×4 (05:29→22:54)
[2016-12-26] MEDS: VANCOMYCIN HCL 1000 MG/20 ML ORAL PO SCH ×4 (05:29→23:26)
[2016-12-26] MEDS: BLOOD SUGAR DIAGNOSTIC STRIP TEST SCH ×4 (05:29→22:52)
[2016-12-26] MEDS: LANSOPRAZOLE 30MG DR CAPSULE GT SCH (08:31)
[2016-12-26] MEDS: METOPROLOL TARTRATE 25MG TABLET GT SCH ×2 (08:32→20:26)
[2016-12-26] MEDS: BACITRACIN/POLYMYXIN B SULFATE OINT 15GM TOP SCH ×2 (08:32→20:24)
[2016-12-26] MEDS: DIGOXIN 125MCG TABLET GT SCH (17:49)
[2016-12-26] MEDS: INSULIN DETEMIR UD 100 UNITS/ML SYR SUBCUT SCH (22:55)
[2016-12-27] VITALS (12 sets, daily range): BP systolic 110–150; BP diastolic 48–95
[2016-12-27] MEDS: IPRATROPIUM/ALBUTEROL 0.5-3(2.5)MG/3ML NEB HHN SCH ×6 (00:26→20:29)
[2016-12-27] MEDS: VANCOMYCIN HCL 1000 MG/20 ML ORAL PO SCH ×4 (05:21→23:08)
[2016-12-27] MEDS: BLOOD SUGAR DIAGNOSTIC STRIP TEST SCH ×4 (05:25→23:12)
[2016-12-27] MEDS: INSULIN LISPRO 100 UNITS/ML SUBCUT SCH ×4 (05:30→23:11)
[2016-12-27] MEDS: LANSOPRAZOLE 30MG DR CAPSULE GT SCH (08:34)
[2016-12-27] MEDS: METOPROLOL TARTRATE 25MG TABLET GT SCH ×2 (08:34→20:23)
[2016-12-27] MEDS: BACITRACIN/POLYMYXIN B SULFATE OINT 15GM TOP SCH ×2 (08:35→20:25)
[2016-12-27] MEDS ORDERED: LORAZEPAM 2MG/ML CPJ IV PRN (14:30)
[2016-12-27] MEDS: LEVETIRACETAM 500 MG in SODIUM CHLORIDE 0.9% 100 ML IV SCH ×2 (16:21→23:12)
[2016-12-27] MEDS: DIGOXIN 125MCG TABLET GT SCH (17:30)
[2016-12-27] MEDS: SULFAMETHOXAZOLE/TRIMETHOPRIM 800/160MG TABLET PO SCH (20:23)
[2016-12-27] MEDS: INSULIN DETEMIR UD 100 UNITS/ML SYR SUBCUT SCH (23:11)
[2016-12-28] VITALS (12 sets, daily range): BP systolic 101–148; BP diastolic 53–78
[2016-12-28] MEDS: IPRATROPIUM/ALBUTEROL 0.5-3(2.5)MG/3ML NEB HHN SCH ×6 (00:33→19:55)
[2016-12-28] MEDS: VANCOMYCIN HCL 1000 MG/20 ML ORAL PO SCH ×3 (05:18→18:10)
[2016-12-28] MEDS: BLOOD SUGAR DIAGNOSTIC STRIP TEST SCH ×3 (05:22→17:56)
[2016-12-28] MEDS: INSULIN LISPRO 100 UNITS/ML SUBCUT SCH ×4 (05:41→23:48)
[2016-12-28] MEDS: LEVETIRACETAM 500 MG in SODIUM CHLORIDE 0.9% 100 ML IV SCH (09:06)
[2016-12-28] MEDS: METOPROLOL TARTRATE 25MG TABLET GT SCH ×2 (09:17→20:58)
[2016-12-28] MEDS: LANSOPRAZOLE 30MG DR CAPSULE GT SCH (09:17)
[2016-12-28] MEDS: SULFAMETHOXAZOLE/TRIMETHOPRIM 800/160MG TABLET PO SCH ×2 (09:17→20:58)
[2016-12-28] MEDS: BACITRACIN/POLYMYXIN B SULFATE OINT 15GM TOP SCH ×2 (09:18→20:58)
[2016-12-28] MEDS: DIGOXIN 125MCG TABLET GT SCH (18:10)
[2016-12-28] MEDS: LEVETIRACETAM 500MG TABLET GT SCH (20:58)
[2016-12-28] MEDS: INSULIN DETEMIR UD 100 UNITS/ML SYR SUBCUT SCH (23:49)
[2016-12-29] VITALS (12 sets, daily range): BP systolic 103–128; BP diastolic 48–79
[2016-12-29] MEDS: IPRATROPIUM/ALBUTEROL 0.5-3(2.5)MG/3ML NEB HHN SCH ×5 (00:21→20:36)
[2016-12-29] MEDS: BLOOD SUGAR DIAGNOSTIC STRIP TEST SCH ×5 (06:00→23:02)
[2016-12-29] MEDS: LANSOPRAZOLE 30MG DR CAPSULE GT SCH (06:30)
[2016-12-29] MEDS: INSULIN LISPRO 100 UNITS/ML SUBCUT SCH ×4 (06:30→23:13)
[2016-12-29] MEDS: SULFAMETHOXAZOLE/TRIMETHOPRIM 800/160MG TABLET PO SCH ×2 (09:59→20:19)
[2016-12-29] MEDS: BACITRACIN/POLYMYXIN B SULFATE OINT 15GM TOP SCH ×2 (09:59→20:20)
[2016-12-29] MEDS: LEVETIRACETAM 500MG TABLET GT SCH (09:59)
[2016-12-29] MEDS: METOPROLOL TARTRATE 25MG TABLET GT SCH ×2 (10:00→20:20)
[2016-12-29] MEDS: DIGOXIN 125MCG TABLET GT SCH (18:56)
[2016-12-29] MEDS: VANCOMYCIN HCL 1000 MG/20 ML ORAL PO SCH ×2 (18:56→23:02)
[2016-12-29] MEDS: LEVETIRACETAM 500MG/5ML CUP GT SCH (20:19)
[2016-12-29] MEDS: INSULIN DETEMIR UD 100 UNITS/ML SYR SUBCUT SCH (22:00)
[2016-12-30] VITALS (11 sets, daily range): BP systolic 106–132; BP diastolic 45–79
[2016-12-30] MEDS: IPRATROPIUM/ALBUTEROL 0.5-3(2.5)MG/3ML NEB HHN SCH ×5 (00:49→20:28)
[2016-12-30] MEDS: VANCOMYCIN HCL 1000 MG/20 ML ORAL PO SCH ×3 (05:17→18:10)
[2016-12-30] MEDS: BLOOD SUGAR DIAGNOSTIC STRIP TEST SCH ×3 (05:17→18:10)
[2016-12-30 06:48] LABS: BASOPHILS % 0.6 % (0.0-2.0); EOSINOPHILS % 2.4 % (0.0-5.0); HEMATOCRIT. 40.8 % (36.0-48.0); HEMOGLOBIN. 12.6 g/dL (12.0-16.0); LYMPHOCYTES % 31.2 % (20.0-50.0); MEAN CORPUSCULAR HEMOGLOBIN 23.9 pg (28.0-32.0); MEAN CORPUSCULAR VOLUME 77.3 fL (81.0-99.0); MEAN PLATELET VOLUME 11.2 fl (7.4-10.4); MONOCYTES % 5.9 % (2.0-8.0); NEUTROPHILS % 59.9 % (40.0-76.0); PLATELET 196 x1000/uL (130-400); RED BLOOD CELL COUNT 5.28 mill/uL (4.2-5.4); RED CELL DISTRIBUTION WIDTH 14.2 % (11.6-14.6)
[2016-12-30] MEDS: INSULIN LISPRO 100 UNITS/ML SUBCUT SCH ×3 (07:34→18:14)
[2016-12-30 07:38] LABS: CARBON DIOXIDE 27 mEq/L (21-32); CHLORIDE 108 mEq/L (98-107)
[2016-12-30] MEDS: LEVETIRACETAM 500MG/5ML CUP GT SCH ×2 (11:03→21:01)
[2016-12-30] MEDS: FAMOTIDINE 20MG TABLET GT SCH ×2 (11:03→21:01)
[2016-12-30] MEDS: SULFAMETHOXAZOLE/TRIMETHOPRIM 800/160MG TABLET PO SCH ×2 (11:03→21:01)
[2016-12-30] MEDS: METOPROLOL TARTRATE 25MG TABLET GT SCH ×2 (11:05→21:00)
[2016-12-30] MEDS: BACITRACIN/POLYMYXIN B SULFATE OINT 15GM TOP SCH ×2 (11:05→21:02)
[2016-12-30] MEDS ORDERED: DOCUSATE SODIUM SUGAR FREE 100MG/10ML UDC GT PRN (11:24)
[2016-12-30] MEDS: DIGOXIN 125MCG TABLET GT SCH (18:10)
[2016-12-30] MEDS: INSULIN DETEMIR UD 100 UNITS/ML SYR SUBCUT SCH (21:21)
[2016-12-31] VITALS (11 sets, daily range): BP systolic 102–125; BP diastolic 48–82
[2016-12-31] MEDS: VANCOMYCIN HCL 1000 MG/20 ML ORAL PO SCH ×4 (00:26→18:37)
[2016-12-31] MEDS: BLOOD SUGAR DIAGNOSTIC STRIP TEST SCH ×4 (00:26→18:36)
[2016-12-31] MEDS: IPRATROPIUM/ALBUTEROL 0.5-3(2.5)MG/3ML NEB HHN SCH ×5 (00:36→17:04)
[2016-12-31] MEDS: INSULIN LISPRO 100 UNITS/ML SUBCUT SCH ×4 (00:36→18:38)
[2016-12-31] MEDS: LEVETIRACETAM 500MG/5ML CUP GT SCH (10:47)
[2016-12-31] MEDS: BACITRACIN/POLYMYXIN B SULFATE OINT 15GM TOP SCH (10:47)
[2016-12-31] MEDS: FAMOTIDINE 20MG TABLET GT SCH (10:47)
[2016-12-31] MEDS: SULFAMETHOXAZOLE/TRIMETHOPRIM 800/160MG TABLET PO SCH (10:47)
[2016-12-31] MEDS: METOPROLOL TARTRATE 25MG TABLET GT SCH (10:48)
[2016-12-31] MEDS: DIGOXIN 125MCG TABLET GT SCH (18:38)
== END 2016-12-31 20:48 | DRG 3 ==
LOC: ER 06:15 → EDBEDREQSVC 07:30 → CVICU 08:27 → EDBEDREQ 08:33 → ENRESERV 08:52 → 5EST 12-22 13:25
PROVIDERS: ADMIT Internal Medicine; ATTEND Internal Medicine
PROC: 5A1955Z Respiratory Ventilation, Greater than 96 Consecutive Hours (ICD-10-PCS; principal; 2016-12-09)
PROC: 0BH17EZ Insertion of Endotracheal Airway into Trachea, Via Natural or Artificial Opening (ICD-10-PCS; 2016-12-09)
PROC: 05H333Z Insertion of Infusion Device into Right Innominate Vein, Percutaneous Approach (ICD-10-PCS; 2016-12-12)
PROC: B54MZZA Ultrasonography of Right Upper Extremity Veins, Guidance (ICD-10-PCS; 2016-12-12)
PROC: 0GBG3ZZ Excision of Left Thyroid Gland Lobe, Percutaneous Approach (ICD-10-PCS; 2016-12-21)
PROC: 0B113F4 Bypass Trachea to Cutaneous with Tracheostomy Device, Percutaneous Approach (ICD-10-PCS; 2016-12-21)
PROC: 0BJ08ZZ Inspection of Tracheobronchial Tree, Via Natural or Artificial Opening Endoscopic (ICD-10-PCS; 2016-12-21)
DX: A41.51 Sepsis due to Escherichia coli [E. coli] (principal); J15.212 Pneumonia due to Methicillin resistant Staphylococcus aureus; G93.41 Metabolic encephalopathy; L89.159 Pressure ulcer of sacral region, unspecified stage; D69.6 Thrombocytopenia, unspecified; R13.10 Dysphagia, unspecified; J96.01 Acute respiratory failure with hypoxia; J44.0 Chronic obstructive pulmonary disease with (acute) lower respiratory infection; E44.1 Mild protein-calorie malnutrition; N39.0 Urinary tract infection, site not specified; Z99.11 Dependence on respirator [ventilator] status; M46.28 Osteomyelitis of vertebra, sacral and sacrococcygeal region; M21.379 Foot drop, unspecified foot; E11.65 Type 2 diabetes mellitus with hyperglycemia; F09 Unspecified mental disorder due to known physiological condition; I10 Essential (primary) hypertension; I48.91 Unspecified atrial fibrillation; K21.9 Gastro-esophageal reflux disease without esophagitis; R47.02 Dysphasia; Z79.4 Long term (current) use of insulin; Z87.01 Personal history of pneumonia (recurrent); Z87.440 Personal history of urinary (tract) infections; Z93.1 Gastrostomy status; Z95.0 Presence of cardiac pacemaker; Z98.2 Presence of cerebrospinal fluid drainage device
CPT/HCPCS: 31500; 36415; 36569; 36600; 51702; 70450; 71010; 76937; 80048; 80053; 80061; 80076; 80162; 80202; 81001; 82140; 82375; 82550; 82805; 82962; 83036; 83605; 83690; 83735; 83880; 84100; 84478; 84484; 85025; 85610; 85730; 86850; 86900; 87040; 87070; 87077; 87086; 87186; 87493; 93005; 93306; 94002; 94003; 94640; 94644; 95816; 96361; 96365; 96368; 96375; 99291; A4216; A6261; C1725; J0330; J1650; J1815; J1953; J1956; J2060; J2185; J2270; J2704; J2930; J3370; J3475; J3490; J7030; J7040; J7042; J7050; J7060; J7608; J7611; J7620; A4315

== ENCOUNTER 2019-06-22 17:27 | Inpatient (IN) | payer MEDICARE, MEDICAID ==
[~2019-06-22] VITALS: Ht 160 cm; Wt 72.6 kg
[~2019-06-22 17:27] MED LIST changes: +CHOL20004 GT; +DIGO125T PO; +FAMO-134 GT; +LEVVL SQ; -METO-293 GT; -PROT40 GT; +[UNRECOGNIZED DRUG - CODE] GT
[2019-06-22] MEDS ORDERED: LEVOFLOXACIN 500MG PREMIX 100 ML IV ONE (18:00)
[2019-06-22] MEDS ORDERED: SODIUM CHLORIDE 0.9% 1000ML BAG (SEPSIS BOLUS) IV ONE (18:00)
[2019-06-22 18:21] LABS: BG BASE EXCESS 8.3 mmol/L (-2.0-2.0); BG CARBOXYHEMOGLOBIN 0.4 % (0.5-1.5); BG DEOXYHEMOGLOBIN 1.4 % (0.0-5.0); BG FRACTION INSPIRED OXYGEN 40; BG HCO3 ACT 35.8 mmol/L (22.0-26.0); BG METHEMOGLOBIN 0.2 % (0.0-1.5); BG OXYGEN SATURATION 98.6 % (92.0-98.5); BG PCO2 63.5 mmHg (35.0-45.0); BG PH 7.369 (7.350-7.450); BG PO2 122.9 mmHg (75.0-100.0); BG SAMPLE SITE RIGHT BRACHIAL; BG TIDAL VOLUME(mL) 450 mL; BG VENT MODE VENT - A/C; BG VENT RATE 20 set
[2019-06-22 19:10] LABS: EOSINOPHILS % 0.8 % (0.0-5.0); HEMATOCRIT. 39.6 % (36.0-48.0); HEMOGLOBIN. 12.4 g/dL (12.0-16.0); LYMPHOCYTES % 28.1 % (20.0-50.0); MEAN CORPUSCULAR HEMOGLOBIN 24.8 pg (28.0-32.0); MEAN CORPUSCULAR VOLUME 79.2 fL (81.0-99.0); MEAN PLATELET VOLUME 11.5 fl (7.4-10.4); MONOCYTES % 6.4 % (2.0-8.0); NEUTROPHILS % 63.7 % (40.0-76.0); PLATELET 169 x1000/uL (130-400); RED BLOOD CELL COUNT 5.01 mill/uL (4.2-5.4)
[2019-06-22 19:25] LABS: CHLORIDE 97 mEq/L (98-107)
[2019-06-22 19:47] LABS: PROTHROMBIN TIME 10.8 sec (9.6-11.0)
[2019-06-23] VITALS (8 sets, daily range): BP systolic 89–114; BP diastolic 51–67
[2019-06-23 09:21] LABS: CLARITY URINE TURBID (CLEAR); COLOR URINE YELLOW (YELLOW); KETONES URINE NEGATIVE (NEGATIVE); LEUKOCYTE ESTERASE URINE 3+ (NEGATIVE); NITRITE URINE POSITIVE (NEGATIVE); OCCULT BLOOD URINE TRACE (NEGATIVE); PH URINE 7.5 (4.5-8.0); PROTEIN URINE 1+ (NEGATIVE); SPECIFIC GRAVITY URINE 1.018 (1.005-1.030)
[2019-06-23] MEDS: SODIUM CHLORIDE 0.9% 1,000 ML IV SCH ×2 (10:23→22:19)
[2019-06-23] MEDS ORDERED: ONDANSETRON HCL 4MG/2ML INJ IV PRN (10:30)
[2019-06-23] MEDS ORDERED: ACETAMINOPHEN 325MG TABLET PO PRN (10:30)
[2019-06-23] MEDS ORDERED: DEXTROSE 50% WATER 50ML SYRINGE IV PRN (10:45)
[2019-06-23] MEDS: BLOOD SUGAR DIAGNOSTIC STRIP TEST SCH ×2 (12:00→17:20)
[2019-06-23] MEDS ORDERED: BLOOD SUGAR DIAGNOSTIC STRIP TEST SCH (12:30)
[2019-06-23] MEDS ORDERED: LIDOCAINE HCL 1% 20ML VIAL (Pyxis) INJ ONE (13:13)
[2019-06-23] MEDS: PIPERACILLIN/TAZOBACTAM 3.375 G in DEXT 5% WATER 100 ML IV SCH ×2 (13:33→17:20)
[2019-06-23] MEDS: HEPARIN 5000 UNITS/ML VIAL SUBCUT SCH ×2 (13:34→22:18)
[2019-06-23] MEDS: PANTOPRAZOLE SODIUM 40 MG/VIAL IV SCH (13:34)
[2019-06-23] MEDS: INSULIN LISPRO 100 UNITS/ML SUBCUT SCH ×2 (13:37→17:34)
[2019-06-23] MEDS ORDERED: VANCOMYCIN 1250MG in DEXTROSE 5% WATER 250ML IV NR (14:00)
[2019-06-23] MEDS: DIGOXIN 125MCG TABLET PO SCH (17:20)
[2019-06-23] MEDS: BUDESONIDE 0.5MG/2ML NEB HHN SCH (20:21)
[2019-06-23] MEDS: IPRATROPIUM BROMIDE (0.02%) 0.5MG/2.5ML NEB HHN SCH (20:22)
[2019-06-23 21:49] LABS: BASOPHILS % 0.9 % (0.0-2.0); EOSINOPHILS % 1.9 % (0.0-5.0); HEMATOCRIT. 32.3 % (36.0-48.0); HEMOGLOBIN. 10.1 g/dL (12.0-16.0); LYMPHOCYTES % 22.9 % (20.0-50.0); MEAN CORPUSCULAR HEMOGLOBIN 24.9 pg (28.0-32.0); MEAN CORPUSCULAR VOLUME 79.4 fL (81.0-99.0); MEAN PLATELET VOLUME 9.6 fl (7.4-10.4); MONOCYTES % 5.8 % (2.0-8.0); NEUTROPHILS % 68.5 % (40.0-76.0); PLATELET 126 x1000/uL (130-400); RED BLOOD CELL COUNT 4.07 mill/uL (4.2-5.4); RED CELL DISTRIBUTION WIDTH 16.8 % (11.6-14.6)
[2019-06-23 22:03] LABS: CHLORIDE 109 mEq/L (98-107)
[2019-06-23 22:24] LABS: DIGOXIN 0.7 ng/mL (0.9-2.0)
[2019-06-24] VITALS (12 sets, daily range): BP systolic 101–132; BP diastolic 51–73
[2019-06-24] MEDS: BLOOD SUGAR DIAGNOSTIC STRIP TEST SCH ×5 (00:05→23:39)
[2019-06-24] MEDS: PIPERACILLIN/TAZOBACTAM 3.375 G in DEXT 5% WATER 100 ML IV SCH ×5 (00:05→23:40)
[2019-06-24] MEDS: VANCOMYCIN 1 G PREMIX 200 ML IV SCH ×3 (00:16→20:17)
[2019-06-24] MEDS: IPRATROPIUM BROMIDE (0.02%) 0.5MG/2.5ML NEB HHN SCH ×6 (00:24→20:17)
[2019-06-24] MEDS: ACETYLCYSTEINE 100MG/ML 10% VIAL 4ML INH SCH ×3 (00:24→16:21)
[2019-06-24] MEDS: INSULIN LISPRO 100 UNITS/ML SUBCUT SCH ×4 (05:19→17:58)
[2019-06-24 07:33] LABS: EOSINOPHILS % 1.7 % (0.0-5.0); HEMATOCRIT. 34.5 % (36.0-48.0); HEMOGLOBIN. 10.8 g/dL (12.0-16.0); MEAN CORPUSCULAR HEMOGLOBIN 24.8 pg (28.0-32.0); MEAN PLATELET VOLUME 11.3 fl (7.4-10.4); MONOCYTES % 5.8 % (2.0-8.0); NEUTROPHILS % 71.5 % (40.0-76.0); PLATELET 139 x1000/uL (130-400); RED BLOOD CELL COUNT 4.37 mill/uL (4.2-5.4)
[2019-06-24 07:44] LABS: CHLORIDE 106 mEq/L (98-107)
[2019-06-24 08:12] LABS: BG BASE EXCESS -2.1 mmol/L (-2.0-2.0); BG CARBOXYHEMOGLOBIN 0.4 % (0.5-1.5); BG DEOXYHEMOGLOBIN 4.9 % (0.0-5.0); BG HCO3 ACT 22.6 mmol/L (22.0-26.0); BG METHEMOGLOBIN 0.1 % (0.0-1.5); BG OXYGEN SATURATION 95.1 % (92.0-98.5); BG OXYHEMOGLOBIN 94.6 % (94.0-97.0); BG PCO2 38.8 mmHg (35.0-45.0); BG PH 7.384 (7.350-7.450); BG PO2 75.8 mmHg (75.0-100.0); BG SAMPLE SITE RIGHT RADIAL; BG TIDAL VOLUME(mL) 450 mL; BG TOTAL HEMOGLOBIN 11.5 g/dL (12.0-18.0); BG VENT MODE VENT - A/C; BG VENT RATE 20 set
[2019-06-24] MEDS: BUDESONIDE 0.5MG/2ML NEB HHN SCH ×2 (08:51→20:15)
[2019-06-24] MEDS: PANTOPRAZOLE SODIUM 40 MG/VIAL IV SCH (10:38)
[2019-06-24] MEDS: HEPARIN 5000 UNITS/ML VIAL SUBCUT SCH ×2 (10:39→20:20)
[2019-06-24] MEDS: SODIUM CHLORIDE 0.9% 1,000 ML IV SCH ×2 (10:40→23:40)
[2019-06-24] MEDS: DIGOXIN 125MCG TABLET PO SCH (17:57)
[2019-06-24] MEDS: LEVETIRACETAM 500MG/5ML CUP GT SCH (20:17)
[2019-06-24] MEDS: METOPROLOL TARTRATE 50MG TABLET PO SCH (20:18)
[2019-06-25] VITALS (12 sets, daily range): BP systolic 97–148; BP diastolic 53–79
[2019-06-25] MEDS: INSULIN LISPRO 100 UNITS/ML SUBCUT SCH ×4 (00:04→18:32)
[2019-06-25] MEDS: ACETYLCYSTEINE 100MG/ML 10% VIAL 4ML INH SCH ×3 (00:18→16:30)
[2019-06-25] MEDS: IPRATROPIUM BROMIDE (0.02%) 0.5MG/2.5ML NEB HHN SCH ×6 (00:18→21:02)
[2019-06-25] MEDS: BLOOD SUGAR DIAGNOSTIC STRIP TEST SCH ×4 (05:43→23:38)
[2019-06-25] MEDS: PIPERACILLIN/TAZOBACTAM 3.375 G in DEXT 5% WATER 100 ML IV SCH ×4 (05:43→23:24)
[2019-06-25 07:19] LABS: CHLORIDE 108 mEq/L (98-107)
[2019-06-25 07:25] LABS: BASOPHILS % 0.5 % (0.0-2.0); EOSINOPHILS % 2.4 % (0.0-5.0); HEMOGLOBIN. 10.6 g/dL (12.0-16.0); LYMPHOCYTES % 20.5 % (20.0-50.0); MEAN CORPUSCULAR HEMOGLOBIN 24.8 pg (28.0-32.0); MEAN CORPUSCULAR VOLUME 79.5 fL (81.0-99.0); MEAN PLATELET VOLUME 11.7 fl (7.4-10.4); MONOCYTES % 6.4 % (2.0-8.0); NEUTROPHILS % 70.2 % (40.0-76.0); PLATELET 141 x1000/uL (130-400); RED BLOOD CELL COUNT 4.27 mill/uL (4.2-5.4); RED CELL DISTRIBUTION WIDTH 17.1 % (11.6-14.6)
[2019-06-25] MEDS: BUDESONIDE 0.5MG/2ML NEB HHN SCH ×2 (08:45→21:02)
[2019-06-25] MEDS: LEVETIRACETAM 500MG/5ML CUP GT SCH ×2 (08:48→20:37)
[2019-06-25] MEDS: FAMOTIDINE 20MG/2ML VIAL IV SCH ×2 (08:49→20:37)
[2019-06-25] MEDS: HEPARIN 5000 UNITS/ML VIAL SUBCUT SCH ×2 (08:51→20:38)
[2019-06-25] MEDS: VANCOMYCIN 1 G PREMIX 200 ML IV SCH (08:51)
[2019-06-25] MEDS: METOPROLOL TARTRATE 50MG TABLET PO SCH ×2 (08:56→20:52)
[2019-06-25] MEDS: SODIUM CHLORIDE 0.9% 1,000 ML IV SCH ×2 (12:42→23:26)
[2019-06-25] MEDS ORDERED: POTASSIUM CHLORIDE 20MEQ/PACKET GT NR (12:45)
[2019-06-25] MEDS: DIGOXIN 125MCG TABLET PO SCH (18:26)
[2019-06-25] MEDS: VANCOMYCIN 750 MG PREMIX 150 ML IV SCH (18:26)
[2019-06-26] VITALS (13 sets, daily range): BP systolic 92–151; BP diastolic 45–68
[2019-06-26] MEDS: IPRATROPIUM BROMIDE (0.02%) 0.5MG/2.5ML NEB HHN SCH ×6 (00:43→20:33)
[2019-06-26] MEDS: ACETYLCYSTEINE 100MG/ML 10% VIAL 4ML INH SCH ×3 (00:43→16:37)
[2019-06-26] MEDS: BLOOD SUGAR DIAGNOSTIC STRIP TEST SCH ×3 (05:18→17:40)
[2019-06-26] MEDS: PIPERACILLIN/TAZOBACTAM 3.375 G in DEXT 5% WATER 100 ML IV SCH (05:22)
[2019-06-26] MEDS: VANCOMYCIN 750 MG PREMIX 150 ML IV SCH (05:34)
[2019-06-26] MEDS: INSULIN LISPRO 100 UNITS/ML SUBCUT SCH ×4 (05:39→18:58)
[2019-06-26 06:15] LABS: BASOPHILS % 0.3 % (0.0-2.0); EOSINOPHILS % 2.3 % (0.0-5.0); HEMATOCRIT. 30.7 % (36.0-48.0); HEMOGLOBIN. 9.8 g/dL (12.0-16.0); LYMPHOCYTES % 19.3 % (20.0-50.0); MEAN CORPUSCULAR HEMOGLOBIN 25.2 pg (28.0-32.0); MEAN CORPUSCULAR VOLUME 79.2 fL (81.0-99.0); MONOCYTES % 6.7 % (2.0-8.0); NEUTROPHILS % 71.4 % (40.0-76.0); PLATELET 139 x1000/uL (130-400); RED BLOOD CELL COUNT 3.87 mill/uL (4.2-5.4); RED CELL DISTRIBUTION WIDTH 16.9 % (11.6-14.6)
[2019-06-26] MEDS: BUDESONIDE 0.5MG/2ML NEB HHN SCH ×2 (08:19→20:33)
[2019-06-26] MEDS: METOPROLOL TARTRATE 50MG TABLET PO SCH ×2 (09:00→21:59)
[2019-06-26] MEDS: HEPARIN 5000 UNITS/ML VIAL SUBCUT SCH ×2 (09:32→21:32)
[2019-06-26] MEDS: FAMOTIDINE 20MG/2ML VIAL IV SCH (09:32)
[2019-06-26] MEDS: LEVETIRACETAM 500MG/5ML CUP GT SCH ×2 (09:32→21:32)
[2019-06-26] MEDS: SODIUM CHLORIDE 0.9% 1,000 ML IV SCH (13:28)
[2019-06-26] MEDS: MEROPENEM 500 MG in SODIUM CHLORIDE 0.9% 50 ML IV SCH (13:28)
[2019-06-26 14:16] LABS: CREATINE KINASE 33 IU/L (26-192)
[2019-06-26] MEDS ORDERED: BUDESONIDE 0.5MG/2ML NEB ONE (20:36)
[2019-06-27] VITALS (11 sets, daily range): BP systolic 103–145; BP diastolic 45–67
[2019-06-27] MEDS: IPRATROPIUM BROMIDE (0.02%) 0.5MG/2.5ML NEB HHN SCH ×3 (00:26→08:12)
[2019-06-27] MEDS: ACETYLCYSTEINE 100MG/ML 10% VIAL 4ML INH SCH ×2 (00:26→08:12)
[2019-06-27] MEDS: MEROPENEM 500 MG in SODIUM CHLORIDE 0.9% 50 ML IV SCH (00:41)
[2019-06-27] MEDS: SODIUM CHLORIDE 0.9% 1,000 ML IV SCH (00:41)
[2019-06-27] MEDS: INSULIN LISPRO 100 UNITS/ML SUBCUT SCH ×2 (00:42→05:57)
[2019-06-27] MEDS: BLOOD SUGAR DIAGNOSTIC STRIP TEST SCH ×2 (05:56→05:57)
[2019-06-27 07:19] LABS: BASOPHILS % 0.7 % (0.0-2.0); EOSINOPHILS % 2.6 % (0.0-5.0); HEMATOCRIT. 29.8 % (36.0-48.0); HEMOGLOBIN. 9.2 g/dL (12.0-16.0); LYMPHOCYTES % 15.7 % (20.0-50.0); MEAN CORPUSCULAR HEMOGLOBIN 24.4 pg (28.0-32.0); PLATELET 169 x1000/uL (130-400); RED BLOOD CELL COUNT 3.78 mill/uL (4.2-5.4); RED CELL DISTRIBUTION WIDTH 16.9 % (11.6-14.6)
[2019-06-27] MEDS: METOPROLOL TARTRATE 50MG TABLET PO SCH (08:27)
[2019-06-27] MEDS: LEVETIRACETAM 500MG/5ML CUP GT SCH (08:28)
[2019-06-27] MEDS: HEPARIN 5000 UNITS/ML VIAL SUBCUT SCH (08:29)
[2019-06-27] MEDS ORDERED: FAMOTIDINE 20MG/2ML VIAL IV SCH (09:00)
[2019-06-27] MEDS ORDERED: IPRATROPIUM/ALBUTEROL 0.5-3(2.5)MG/3ML NEB HHN PRN (11:00)
[2019-06-27] MEDS ORDERED: LORAZEPAM 2MG/ML CPJ IV PRN (11:00)
[2019-06-27] MEDS: MORPHINE SULFATE 100 MG in DEXT 5% WATER 90 ML IV PRN (14:09)
[2019-06-28] VITALS (12 sets, daily range): BP systolic 112–124; BP diastolic 45–59
[2019-06-28] MEDS: MORPHINE SULFATE 100 MG in DEXT 5% WATER 90 ML IV PRN (06:10)
[2019-06-29] VITALS (11 sets, daily range): BP systolic 117–146; BP diastolic 51–81
[2019-06-29] MEDS: MORPHINE SULFATE 100 MG in DEXT 5% WATER 90 ML IV PRN (01:07)
[2019-06-30] VITALS: BP 117/55
[2019-06-30 04:00] VITALS: BP 118/59
[2019-06-30 06:19] VITALS: BP 118/59
[2019-06-30 08:00] VITALS: BP 126/54
[2019-06-30] MEDS: MORPHINE SULFATE 100 MG in DEXT 5% WATER 90 ML IV PRN (08:59)
[2019-06-30 12:00] VITALS: BP 104/55
[2019-06-30 14:44] VITALS: BP 113/56
== END 2019-06-30 15:14 | DRG 870 ==
LOC: ER 17:33 → 5EST 20:24 → EDBEDREQTM 20:37 → EDBEDREQ 20:37 → ENRESERV 06-23 07:43 → ER 06-23 09:18 → 6EST 06-29 10:25
PROVIDERS: ADMIT Family Medicine Adult Medicine; ATTEND Family Medicine Adult Medicine
PROC: 5A1955Z Respiratory Ventilation, Greater than 96 Consecutive Hours (ICD-10-PCS; principal; 2019-06-22)
PROC: 02H633Z Insertion of Infusion Device into Right Atrium, Percutaneous Approach (ICD-10-PCS; 2019-06-23)
PROC: B548ZZA Ultrasonography of Superior Vena Cava, Guidance (ICD-10-PCS; 2019-06-23)
DX: A41.51 Sepsis due to Escherichia coli [E. coli] (principal); R65.21 Severe sepsis with septic shock; J18.9 Pneumonia, unspecified organism; K72.00 Acute and subacute hepatic failure without coma; N17.0 Acute kidney failure with tubular necrosis; J96.21 Acute and chronic respiratory failure with hypoxia; J96.22 Acute and chronic respiratory failure with hypercapnia; E87.1 Hypo-osmolality and hyponatremia; G91.9 Hydrocephalus, unspecified; J44.0 Chronic obstructive pulmonary disease with (acute) lower respiratory infection; J44.1 Chronic obstructive pulmonary disease with (acute) exacerbation; N39.0 Urinary tract infection, site not specified; R47.01 Aphasia; E87.2 Acidosis; Z16.12 Extended spectrum beta lactamase (ESBL) resistance; Z16.21 Resistance to vancomycin; E46 Unspecified protein-calorie malnutrition; Z99.11 Dependence on respirator [ventilator] status; B96.89 Other specified bacterial agents as the cause of diseases classified elsewhere; D64.9 Anemia, unspecified; E11.65 Type 2 diabetes mellitus with hyperglycemia; G40.909 Epilepsy, unspecified, not intractable, without status epilepticus; I48.0 Paroxysmal atrial fibrillation; I10 Essential (primary) hypertension; D25.9 Leiomyoma of uterus, unspecified; D69.6 Thrombocytopenia, unspecified; Z51.5 Encounter for palliative care; Z66 Do not resuscitate; K21.9 Gastro-esophageal reflux disease without esophagitis; J44.9 Chronic obstructive pulmonary disease, unspecified; B95.2 Enterococcus as the cause of diseases classified elsewhere; I11.9 Hypertensive heart disease without heart failure; Z79.4 Long term (current) use of insulin; Z86.73 Personal history of transient ischemic attack (TIA), and cerebral infarction without residual deficits; Z87.01 Personal history of pneumonia (recurrent); Z93.1 Gastrostomy status; Z98.2 Presence of cerebrospinal fluid drainage device; Z93.0 Tracheostomy status; Z79.899 Other long term (current) drug therapy; Z74.01 Bed confinement status; Z68.28 Body mass index [BMI] 28.0-28.9, adult
CPT/HCPCS: 36415; 36600; 71045; 76770; 76937; 80048; 80053; 80162; 80202; 81003; 82375; 82550; 82805; 82962; 83036; 83605; 83735; 83880; 84134; 84145; 84484; 85025; 87077; 87186; 93005; 93306; 93970; 94002; 94003; 94640; 96365; 99291; C1725; C9113; J1644; J1815; J1956; J2185; J2270; J2543; J3370; J3490; J7030; J7060; J7608; J7626